=== PATIENT | female | born 1995 | race Caucasian/White ===

== ENCOUNTER 2020-05-16 18:12 | Emergency (ER) | payer OTHER, MEDICAID, SELFPAY ==
--- NOTE | ~2020-05-16 | XR_ITS ---
XR ankle LT min 3V DATE: 05/16/2020 18:29 INDICATION: Fell in a hole yesterday. Lateral pain. TECHNIQUE: 4 views COMPARISON: None FINDINGS: No fracture or dislocation of the ankle or disruption of the ankle mortise. No periosteal r eaction or bone destruction. IMPRESSION: Negative Reviewed, dictated and finalized at location A. IMPRESSION: Negative
[2020-05-16 18:23] VITALS: BP 142/85; PULSE 96; RESP 20; TEMP 36.6; O2SAT 99
--- NOTE | 2020-05-16 18:23 | ED.LOWEXIN ---
HPI - Extremity Injury (Lower) General Chief Complaint: Extremity Injury, Lower Stated Complaint: L/ankle pain Time Seen by Provider: 05/16/20 18:23 Source: patient and RN notes reviewed History of Present Illness HPI Narrative: Patient is a 24-year-old female who presents the urgent care with complaints of left ankle pain after twisting it in a hole in her yard. Patient states the incident occurred last night and she has been using ibuprofen, ice and an Rudy wrap for comfort and support. Denies any other acute complaints or injuries. No acute distress noted. Patient aware of the plan of care. Some parts of this dictation were generated by voice recognition software and may contain typographical and/or grammatical inaccuracies. Related Data Home Medications Medication Instructions Recorded Confirmed No Home Medications 05/16/20 05/16/20 Allergies Allergy/AdvReac Type Severity Reaction Status Date / Time latex Allergy Unknown RASH Verified 08/14/19 18:16 Review of Systems Review of Systems: Narrative: CONSTITUTIONAL: Denies fever, chills, or sweats. EYES: Denies visual changes, redness, or discharge. ENT: Denies rhinorrhea, congestion, sore throat, or otalgia. CARDIOVASCULAR: Denies chest pain, palpitations, or edema. RESPIRATORY: Denies cough or dyspnea. GASTROINTESTINAL: Denies abdominal pain, nausea, vomiting, or diarrhea. GENITOURINARY: Denies dysuria or hematuria. SKIN: Denies rash or itching. MUSCULOSKELETAL: Reports of left ankle pain NEUROLOGIC: Denies headache, numbness, or weakness. All other systems reviewed are negative, except as documented in HPI. PMFSH Past Medical History Medical History (Updated 05/16/20 @ 18:36 by ISELA Longo) Depression Seasonal allergies Social History Social History (Updated 07/15/19 @ 20:43 by Maya Ta NP) Smoking status: Never smoker Additional occupation/education comments: Daycare Gender identity (if verbalized by the patient): Female Spiritual care concerns: No Comments At the time of my signature, I reviewed and agree with the nursing past medical, surgical, social, and family history. There is no relevant family history pertinent to the patient complaint. Exam Narrative: Exam Narrative: GENERAL: This is a well-nourished, well-developed patient, in no apparent distress. HEAD: normocephalic, atraumatic. EYES: PERRL. Sclera clear/white. Vision is grossly intact. EARS: External ears normal NOSE: External nose normal with no obvious nasal discharge, nares without redness, no rhinorrhea. THROAT: Mucous membranes moist NECK: Neck supple SKIN: warm, intact with no suspicious lesions or rash, good texture and turgor. NEURO: awake, alert, and oriented to person, place and time. There were no obvious focal neurologic abnormalities. EXTREMITIES: No obvious deformity, edema, erythema or ecchymosis noted to the left lower extremity. Mild tenderness to the medial left malleolus. Positive strong left pedal pulse with capillary refill less than 2 seconds. Range of motion within normal limits. Pain exacerbated with weightbearing activity. Course Vital Signs Vital signs: Vital Signs Temperature 97.8 F 05/16/20 18:23 Pulse Rate 96 05/16/20 18:23 Respiratory Rate 20 05/16/20 18:23 Blood Pressure 142/85 H 05/16/20 18:23 Pulse Oximetry 99 05/16/20 18:23 Temperature 97.8 F 05/16/20 18:23 Pulse Rate 96 05/16/20 18:23 Respiratory Rate 20 05/16/20 18:23 Blood Pressure 142/85 H 05/16/20 18:23 Pulse Oximetry 99 05/16/20 18:23 Reviewed-patient is informed that they may have pre-hypertension or hypertension based on a blood pressure reading in the department. I recommend the patient call the primary care provider listed on their discharge instructions or a physician of their choice this week to arrange follow-up for further evaluation of possible pre-hypertension or hypertension. MDM - Extremity Injury (Lower) MDM
== END 2020-05-16 18:37 | disposition home or self-care (01) ==
PROVIDERS: Emergency Provider Nurse Practitioner Family
DX: S93.402A Sprain of unspecified ligament of left ankle, initial encounter (principal); S96.912A Strain of unspecified muscle and tendon at ankle and foot level, left foot, initial encounter; X50.9XXA Other and unspecified overexertion or strenuous movements or postures, initial encounter; F32.9 Major depressive disorder, single episode, unspecified
CPT/HCPCS: 73610; 99213; G0463

== ENCOUNTER 2022-10-06 09:06 | Emergency (ER) | payer OTHER, SELFPAY ==
[2022-10-06 09:22] VITALS: BP 122/80; PULSE 94; RESP 16; TEMP 36.2; O2SAT 100
--- NOTE | 2022-10-06 09:34 | ED.DENTAL ---
HPI - Dental/Oral General Chief complaint: Dental/Oral Stated complaint: toothache,swelling rt side of face Time Seen by Provider: 10/06/22 09:36 Source: patient Mode of arrival: ambulatory History of Present Illness HPI Narrative: 27-year-old female presented for complaint of right lower dental swelling since last night. She endorses she has a chipped tooth that this site for about 18 months. States she was evaluated by dentist at the time the tooth broke but could not afford to have it fixed then. She has had no complications up until now. She states she has been using Orajel and its mouthwash. She states the pain is minimal. She denies neck pain or swelling, difficulty swallowing, shortness of breath, nausea, vomiting, fevers or chills. [facility] MD Complaint: tooth pain Related Data Allergies Allergy/AdvReac Type Severity Reaction Status Date / Time latex Allergy Unknown RASH Verified 10/06/22 09:38 Review of Systems Review of Systems: CONSTITUTIONAL: Denies body aches, fever, chills ENT: Denies rhinorrhea, congestion, sore throat, or otalgia. Reports dental pain CARDIOVASCULAR: Denies chest pain, palpitations RESPIRATORY: Denies cough or dyspnea. SKIN: Denies rash, itching, or wounds. MUSCULOSKELETAL: Denies myalgia. NEUROLOGIC: Denies headache, numbness, tingling, or weakness. [facility] Past Medical History Medical History Depression Seasonal allergies Social History Social History Smoking status: Never smoker Living arrangements: with family Occupation/Education: occupation Additional occupation/education comments: Daycare Gender identity (if verbalized by the patient): Female Spiritual care concerns: No Comments At time of signature, I have reviewed and agree with nursing past medical, surgical, social and family history unless otherwise noted. Please see nursing chart for further information. There is no relevant family history pertinent to the presenting complaint Exam Narrative: GENERAL: no acute distress. HEAD: Normocephalic, atraumatic. EYES: EOMI. No redness or drainage. Conjunctivae normal. ENT: Dental pain location of #30, multiple dental caries and broken tooth at this site, mild gum swelling without significant erythema or drainage; tender gums; External swelling to site noted, no bruising or erythema; Mucous membranes pink and moist. TMs normal bilaterally. Throat normal. Uvula midline. NECK: Normal AROM. No induration. No lymphadenopathy. CHEST: Clear to auscultation. HEART: Regular rate and rhythm. No murmur appreciated. SKIN: Warm, dry, no rash. Normal skin turgor. NEURO: No focal deficits. Alert and oriented x3. Course Course Emergency Course: Patient is aware of diagnosis, understands and agrees to treatment plan. Anticipatory guidance given. Patient agrees to follow-up as directed and is aware of reasons to seek care at the emergency department. Portions of this record may have been created with voice recognition software Level of Care: Express Care Visit Vital Signs Vital signs: Vital Signs Temperature 97.2 F L 10/06/22 09:22 Pulse Rate 94 10/06/22 09:22 Respiratory Rate 16 10/06/22 09:22 Blood Pressure 122/80 10/06/22 09:22 Pulse Oximetry 100 10/06/22 09:22 Oxygen Delivery Room Air 10/06/22 09:22 Temperature 97.2 F L 10/06/22 09:22 Pulse Rate 94 10/06/22 09:22 Respiratory Rate 16 10/06/22 09:22 Blood Pressure 122/80 10/06/22 09:22 Pulse Oximetry 100 10/06/22 09:22 Oxygen Delivery Room Air 10/06/22 09:22 MDM - Dental/Oral MDM Narrative Medical decision making narrative: Patients pain and complaint coupled with physical findings are consistent with dental abscess There are no focal signs of space occupying lesions that are compromising to the airway; No uvu
== END 2022-10-06 09:56 | disposition home or self-care (01) ==
PROVIDERS: Emergency Provider Nurse Practitioner Family
DX: K04.7 Periapical abscess without sinus (principal)
CPT/HCPCS: 99213; G0463

== ENCOUNTER 2022-10-21 19:13 | Emergency (ER) | payer OTHER, SELFPAY ==
--- NOTE | 2022-10-21 19:15 | ED.GENADULT ---
HPI - General Adult General Chief complaint: Upper Respiratory Infection Stated complaint: Sore Throat Time Seen by Provider: 10/21/22 19:15 Source: patient Mode of arrival: ambulatory Limitations: no limitations History of Present Illness HPI narrative: 27-year-old female patient presents to the [facility] with complaints of a sore throat that started yesterday. Patient states she thinks you ran a small fever yesterday as well and noticed that she had a pus pocket back of her throat. Denies any ear pain. Denies any nausea, vomiting or diarrhea. Denies any body aches or chills. Related Data Home Medications Medication Instructions Recorded Confirmed No Home Medications 10/21/22 10/21/22 Allergies Allergy/AdvReac Type Severity Reaction Status Date / Time latex Allergy Unknown RASH Verified 10/21/22 19:20 Review of Systems Review of Systems: CONSTITUTIONAL: positive fever, chills, or sweats. EYES: Denies visual changes, redness, or discharge. ENT: Denies rhinorrhea, congestion,positive sore throat, or otalgia. CARDIOVASCULAR: Denies chest pain, palpitations, or edema. RESPIRATORY: Denies cough or dyspnea. GASTROINTESTINAL: Denies abdominal pain, nausea, vomiting, or diarrhea. GENITOURINARY: Denies dysuria or hematuria. SKIN: Denies rash or itching. MUSCULOSKELETAL: Denies back pain, joint pain, or myalgia. NEUROLOGIC: Denies headache, numbness, or weakness. PSYCHIATRIC: Denies anxiety or depression. PMFSH Past Medical History Medical History Depression Seasonal allergies Social History Social History Smoking status: Never smoker Living arrangements: with family Occupation/Education: occupation Additional occupation/education comments: Daycare Gender identity (if verbalized by the patient): Female Spiritual care concerns: No Comments At the time of my signature I agree with nursing past medical history, surgical, social, and family history. There is no relevant family history pertinent to the presenting complaint. Exam Narrative: GENERAL: Well-appearing, well-nourished, and in no acute distress. HEAD: Normocephalic, atraumatic. EYES: PERRLA and EOMI. ENT: Nares clear, no rhinorrhea or epistaxis. Mucous membranes moist. posterior pharynx with 1+ tonsil enlargement does seem to be some white exudate noted to the right tonsil. No erythema noted. But lateral TMs are clear no erythema or foreign bodies the canal. NECK: Supple. No lymphadenopathy CHEST: Clear to auscultation. No respiratory distress. HEART: Regular rate and rhythm. No murmur heard. Normal peripheral pulses. ABDOMEN: Soft, nontender, nondistended, normal active bowel sounds. EXTREMITIES: Normal range of motion. No edema. SKIN: Warm, dry, no rash. NEURO: No focal deficits. Alert and oriented x3. Course Course Level of Care: Express Care Visit Vital Signs Vital signs: Vital Signs Temperature 36.7 C 10/21/22 19:21 Respiratory Rate 18 10/21/22 19:21 Blood Pressure 116/74 10/21/22 19:21 Pulse Oximetry 98 10/21/22 19:21 Oxygen Delivery Room Air 10/21/22 19:21 Temperature 36.7 C 10/21/22 19:21 Respiratory Rate 18 10/21/22 19:21 Blood Pressure 116/74 10/21/22 19:21 Pulse Oximetry 98 10/21/22 19:21 Oxygen Delivery Room Air 10/21/22 19:21 Vital signs reviewed Medical Decision Making MDM Narrative Medical decision making narrative: discussed with patient that her strep test today is negative. We will send to the lab for culture. If the culture comes back positive we will call her in antibiotics at that time. Encouraged patient to continue treating her symptoms with [id number] Tylenol, Motrin, warm saltwater gargles, hot tea and honey Differential Diagnosis Differential Diagnosis: differential diagnosis: Viral pharyngitis, pharyngitis, group A strep, infectious m
[2022-10-21 19:21] VITALS: BP 116/74; RESP 18; TEMP 36.7; O2SAT 98
== END 2022-10-21 19:50 | disposition home or self-care (01) ==
PROVIDERS: Emergency Provider Nurse Practitioner Family
DX: J02.9 Acute pharyngitis, unspecified (principal)
CPT/HCPCS: 87081; 87880; 99213; G0463

== ENCOUNTER 2024-04-03 10:25 | Emergency (ER) | payer BC, SELFPAY ==
[2024-04-03 10:36] VITALS: BP 138/73; PULSE 83; RESP 16; TEMP 37.3; O2SAT 99
--- NOTE | 2024-04-03 11:25 | ED.URI ---
HPI - URI/Sore Throat General Chief Complaint: Dental/Oral Stated Complaint: sinus pressure,left ear pain,tooth pain left side Time Seen by Provider: 04/03/24 11:25 Source: patient, RN notes reviewed and old records reviewed Mode of arrival: ambulatory Limitations: no limitations History of Present Illness HPI Narrative: Patient presents with complaints of left-sided ear pain, broken tooth to same side, and sinus congestion. She reports all symptoms began 3 days ago. She has been taking ibuprofen with moderate relief. She denies any fever, chills, sweats. Has no associated facial swelling Related Data Home Medications Medication Instructions Recorded Confirmed cetirizine 10 mg tablet (Zyrtec) 10 mg PO DAILY 04/03/24 04/03/24 Allergies Allergy/AdvReac Type Severity Reaction Status Date / Time latex Allergy Intermediate RASH Verified 04/03/24 11:31 Review of Systems Review of Systems: All systems reviewed & are unremarkable except as noted in HPI and below Constitutional: Constitutional: Reports no additional constitutional complaints ENT: Reports system reviewed and no additional complaints, except as documented, Reports as per HPI, Reports otalgia, Reports facial pain and Reports mouth pain Cardiovascular: Cardiovascular: Reports no additional cardiovascular complaints Respiratory: Respiratory: Reports no additional respiratory complaints Gastrointestinal: Gastrointestinal: Reports no additional gastrointestinal complaints PMFSH Past Medical History Medical History Depression Seasonal allergies Social History Social History Smoking status: Never smoker Living arrangements: with family Occupation/Education: occupation Additional occupation/education comments: Daycare Gender identity (if verbalized by the patient): Female Spiritual care concerns: No Exam Const: General: cooperative, no acute distress, alert and awake Orientation/consciousness: oriented to person, oriented to place and oriented to time HENMT: Head: normal to inspection Ears: TM's normal bilaterally Mouth: Yes moist mucous membranes Teeth and gingiva: abnormal tooth and associated gingiva (Right lower molar cracked in half, associated gingival abscess) Throat: posterior oropharynx normal Resp: Effort & Inspection: normal respiratory effort and able to speak in complete sentences Auscultation: clear to auscultation bilaterally, no crackles, no rales, no rhonchi and no wheezes Cardio: Palpation: normal PMI Rate: regular rate Rhythm: regular rhythm Heart sounds: S1 normal heart sound present and S2 normal heart sound present Neuro: General: oriented to person, oriented to place and oriented to time Cranial nerves: Yes CN's II-XII intact bilaterally Psych: Appearance: grossly normal Thought process: Normal thought process present Insight: Good insight present (Psych) Judgement: Good judgement present (Psych) Course Course Level of Care: Express Care Visit Vital Signs Vital signs: Vital Signs Temperature 99.1 F 04/03/24 10:36 Pulse Rate 83 04/03/24 10:36 Respiratory Rate 16 04/03/24 10:36 Blood Pressure 138/73 04/03/24 10:36 Pulse Oximetry 99 04/03/24 10:36 Oxygen Delivery Room Air 04/03/24 10:36 Temperature 99.1 F 04/03/24 10:36 Pulse Rate 83 04/03/24 10:36 Respiratory Rate 16 04/03/24 10:36 Blood Pressure 138/73 04/03/24 10:36 Pulse Oximetry 99 04/03/24 10:36 Oxygen Delivery Room Air 04/03/24 10:36 MDM - URI/Sore Throat MDM Narrative Medical decision making narrative: Injured right lower molar, associated abscess. No facial swelling, no immediate airway concerns. Able to manage her own secretions. Patient advised follow-up with dentist without fail, emergency department immediately for new or worse symptoms. Follow up with primary care provider.
== END 2024-04-03 11:36 | disposition home or self-care (01) ==
PROVIDERS: Emergency Provider Nurse Practitioner Family
DX: K04.7 Periapical abscess without sinus (principal)
CPT/HCPCS: 99213; G0463

== ENCOUNTER 2024-09-09 20:57 | Emergency (ER) | payer OTHER, SELFPAY ==
[2024-09-09 20:59] VITALS: BP 129/83; PULSE 100; RESP 20; TEMP 36.4; O2SAT 100
--- NOTE | 2024-09-09 21:13 | ECG_ITS ---
Test Date: 2024-09-09 21:08:12 Measurements Intervals [place] Rate: 89 P: 54 [place]: 143 QRS: 34 QRSD: 95 T: 36 QT: 354 QTc: 431 Interpretive Statements SINUS RHYTHM NORMAL ECG No previous ECG available for comparison Electronically Signed On 09-10-2024 13:39:29 SOFTWARE APPLICATIONS DEVELOPER by Fran Barahona D.O.
--- OUTSIDE RECORDS SUMMARY | 2024-09-09 21:20 | XMS_ITS | Clinical Summary ---
Author Organization [facility] Address [address] [place] [id number] Care Team Providers Care Sagger Filler Name Role Phone Savi Ash MD Unavailable [phone] Adamaris Pierson Primary Care Provider [phone] Allergies Active Allergy Reactions Criticality Noted Date Comments Latex Rash Medium 11/26/2012 Medications cetirizine (ZyrTEC) 10 mg tablet Take 1 tablet (10 mg total) by mouth daily Active celecoxib (CeleBREX) 200 mg capsuleIndicati ons:Chronic pain of left knee Take 1 capsule (200 mg total) by mouth daily for 14 days 14 capsule 05/07/2024 Active Active Problems Problem Noted Date Diagnosed Date Metabolic and nutritional disorder 03/03/2024 Class 1 obesity due to exces s calories without serious comorbidity with body mass index (BMI) of 34.0 to 34.9 in adult 08/25/2022 Assessment & Plan (08/25/2022 7:43 AM CONSTRUCTION RECRUITER): Reviewed BMI Focus on healthy diet options Work on healthy changes Routine adult health maintenance 06/20/2022 Overview (09/04/2023): Health Maintenance: -PCV20: N/A -Tdap vaccine: 2018 -Influenza vaccine: due -Shingles vaccine: N/A -Colonoscopy: N/A -Last WWE: 08/13/23 -Last Mammogram: N/A -Last DEXA: N/A -Last eye exam: N/A -Last MHA: N/A Assessment & Plan (08/25/2022 7:43 AM CONSTRUCTION RECRUITER): Health Maintenance: -PCV20: N/A -Tdap vaccine: 2018 -Influenza vaccine: due -Shingles vaccine: N/A -Colonoscopy: N/A -Last WWE: due -Last Mammogram: N/A -Last DEXA: N/A -Last eye exam: N/A -Last MHA: N/A Patient due for flu shot, she can get this at her pharmacy. She has a sheet metal fabricator she is planning to see for her Pap smear. She declines labs at this time. Work on healthy diet and exercise habits. See me annually for routine physicals. Resolved Problems Problem Noted Date Diagnosed Date Resolved Date Encounter for weight management 03/03/2024 04/08/2024 Acute pain of left knee 11/08/202310/2023 Assessment & Plan (11/08/2023 3:18 PM CDT): Patient unfortunately is experiencing left knee pain following a fall a few days ago. X-ray imaging taken today in clinic is negative for acute osseous abnormality and fracture. Patient is tender to palpation over the medial portion of her knee around the pes anserine, and has weakness with flexion and extension of the leg. Differential may include pes anserine bursitis versus medial meniscal tear versus strain or sprain. At this time, we will move forward with physical therapy to strengthen the quadriceps muscles and she will slowly advance activity as tolerated. She will continue to ice and elevate it as needed for pain and swelling. She will follow up with me in 2 months for repeat evaluation, or sooner if needed. She expressed understanding and agreement with the plan. Pain in joint involving left ankle and foot 11/08/2023 04/08/2024 Assessment & Plan (11/08/2023 3:17 PM CDT): Patient unfortunately has continued to have pain in the left ankle and foot following a fall a few days ago. X-rays taken today in clinic are negative for any acute fracture or other osseous abnormality. She is tender over her deltoid ligament. I feel the patient has experienced a sprain of the deltoid ligament. I discussed treatment options today with the patient, including bracing and physical therapy. Patient states that she does have a brace at home that she can put on. She will start in physical therapy for strengthening and range of motion of the left ankle. She will follow up in 2 months for repeat evaluation. She expressed understanding and agreement with the plan. Encounters Date Type Department Care Team Description 07/28/2024 1:30 PM CONSTRUCTION RECRUITER Office Visit [facility] Primary Care at [address] [phone] Clark Bonilla DO Hoffa'lc fat pad disease (HCC) (Primary Dx) 07/21/2024 10:45 AM CONSTRUCTION RECRUITER Office Visit [facility] Sports Medicine and Primary Care at [address] [phone] Clark Bonilla DO Hoffa'lc fat pad disease (HCC) (Primary Dx) 06/25/2024 1:00 PM CONSTRUCTION RECRUITER Office Visit [facility] Medical [facility] Sports Medicine and Primary Care at [address] [phone] Clark Bonilla DO Hoffa'lc fat pad disease (HCC) (Primary Dx); Acute pain of left knee 06/23/2024 Telephone [facility] Medicine and Primary Care at [address] [phone] Priyanka Shaw MA Test Results 06/20/2024 12:24 PM CONSTRUCTION RECRUITER - 06/20/2024 11:59 PM CONSTRUCTION RECRUITER Hospital Encounter [facility] [address] [place] [address] Acute internal derangement of left knee Discharge Disposition: Discharge to home or self care 06/19/2024 Orders Only [facility] Sports Medicine and Primary Care at [address] [phone] Clark Bonilla DO Acute internal derangement of left knee (Primary Dx) 06/11/2024 8:15 AM CONSTRUCTION RECRUITER Office Visit [facility] Sports Medicine and Primary Care at [address] [place] [address] Clark Bonilla DO Acute internal derangement of left knee (Primary Dx); Pain of left calf from Last 3 Months Immunizations Name Administration Dates Next Due DTP / HiB 03/10/1996,01/08/1996,1995 DTaP 02/12/2001 DTaP / IPV 02/12/2001,01/28/1997,01/08/1996 ,1995 DTaP 5 Pertussis 02/12/2001,01/28/1997 DTaP, Unspecified 02/12/2001,01/28/1997 HPV, Quadrivalent 05/05/2009,08/14/2008,10/14/19 08 HPV, Unspecified 05/05/2009,08/14/2008, 8 Hep A, Adult 03/14/2010,05/05/2009 Hep A, Unspecified 03/14/2010,05/05/2009 Hep B Vaccine 03/10/1996,1995,1995 IPV 02/12/2001,01/28/1997,01/08/1996 ,1995 Influenza, Unspecified 07/06/2023(Deferr ed: Patient Refused),05/06/2022(Deferred: Patient Refused),05/06/2021(Deferred: Patient Refused) MMR 02/12/2001,01/28/1997 MMRV 02/12/2001,01/28/1997 Meningococcal MCV4, Unspecified 01/02/2013,10/13 Meningococcal MCV4P (Menactra) 01/02/2013,2007 Tdap 05/06/2018,10/14/2007 Varicella 10/14/2007,01/28/1997 Family History Medical History Relation Name Comments Hyperlipidemia Father Cancer Father's Sister Themla COPD Maternal Grandmother Sarah Clotting disorder Maternal Grandmother Sarah Heart attack Maternal Grandmother Sarah Hypertension Maternal Grandmother Sarah Arthritis Mother Xochilt Heart disease Mother Xochilt Cancer Paternal Grandfather Daniel Cancer Paternal Grandmother Marija Stroke Paternal Grandmother Marija Relation Name Status Comments Father Father's Sister Themla Maternal Grandmother Sarah Mother Xochilt Paternal Grandfather Daniel Paternal Grandmother Marija Social History Tobacco Use Types Packs/Day Years Used Date Smoking Tobacco: Never Smokeless Tobacco: Never Tobacco Cessation:Counseling Given: Not Answered AUDIT-C Answer Date Recorded Q1: How often do you have a drink containing alc ohol? 2-4 times a month 08/25/2022 Q2: How many drinks containi ng alcohol do you have on a typical day when you are drinking? 1 or 2 08/25/2022 Q3: How often do you have si x or more drinks on one occasion? Less than monthly 08/25/2022 PHQ-2 Answer Date Recorded PHQ-2 Total Score (If total score is 3 or more points, staff should administer the PHQ-9) 0 04/08/2024 Personal Safety Answer Date Recorded Have you ever been in or are you currently in a harmful physical or emotional relationship or is someone making you feel afraid or unsafe? Denies 04/28/2024 Comments No Sex and Gender Information Value Date Recorded Sex Assigned at Not on file Legal Sex Female 11:36 PM CONSTRUCTION RECRUITER Gender Identity Not on file Sexual Orientation Not on file Occupation Industry Job Start Date Job End Date [employer] Not on file Not on file Not on file Obstetrics History Para Term AB IAB SAB Ectopic Multiple Livin g Live Births 0 0 0 0 0 0 0 0 0 0 0 Last Filed Vital Signs Vital Sign Reading Time Taken Comments Blood Pressure 126/82 07/28/2024 1:27 PM CONSTRUCTION RECRUITER Pulse 78 07/28/2024 1:27 PM CONSTRUCTION RECRUITER Temperature 36.6 ??C (97.9 ??F) 04/28/2024 7:40 PM CD T Respiratory Rate 20 07/28/2024 1:27 PM CONSTRUCTION RECRUITER Oxygen Saturation 100% 04/28/2024 10:53 PM CDT Inhaled Oxygen Concentration - - Weight 93.6 kg (206 lb 6.4 oz) 07/28/2024 1:27 P M CONSTRUCTION RECRUITER Height 165.1 cm (5' 5 ) 07/28/2024 1:27 PM CONSTRUCTION RECRUITER Body Mass Index 34.35 07/28/2024 1:27 PM CONSTRUCTION RECRUITER Plan of Treatment Health Maintenance Due Date Last Done Comments Hepatitis C Screening 1995 Influenza Vaccine (#1) 2024 Cervical Cancer Screening 08/13/2024 08/13/2023 Regular Well Visit/Exam 18-64 08/13/2024 08/13/2023, 08/25/2022 Depression Screening 04/08/2025 04/08/2024, 08/25/2022, 08/25/2022 DTaP/Tdap/Td Vaccine (8 - Td or Tdap) 05/06/2028 05/06/2018, 10/14/2007, 02/12/2001, Additional history exists Varicella Vaccines Completed 10/14/2007, 0 02/12/2001, 01/28/1997, Additional history exists HPV Vaccines Completed 05/05/2009, 04/08, 08/14/2008, Additional history exists Pneumococcal vaccine <65 Aged Out No longer eligible based on patient's age to complete this topic Procedures Procedure Name Priority Date/Time Associated Diagnosis Comments CHG US GUIDANCE NEEDLE PLACEMENT IMG S&I Routine 07/28/2024 1:30 PM CONSTRUCTION RECRUITER Hoffa's fat pad disease (HCC) DC INJECTION 1 TENDON SHEATH/LIGAMENT APONEUROSIS Routine 07/28/2024 1:30 PM CONSTRUCTION RECRUITER Hoffa's fat pad disease (HCC) MRI KNEE LEFT WO CONTRAST Schedule Routine, Read Routine (OP Routine) 06/20/2024 1:14 PM CONSTRUCTION RECRUITER Acute internal derangement of left knee PAP WITH REFLEX TO HIGH RISK HPV Routine 08/13/2023 10:33 AM CONSTRUCTION RECRUITER Screening for malignant neoplasm of cervix from Last 3 Months or Most Recently Relevant to Health Maintenance Results * DC INJECTION 1 TENDON SHEATH/LIGAMENT APONEUROSIS, CHG US GUIDANCE NEEDLE PLACEMENT IMG S&I (07/28/2024 1:30 PM CONSTRUCTION RECRUITER) Narrative Clark Bonilla, DO - 07/28/2024 1:30 PM CONSTRUCTION RECRUITER Clark Bonilla, DO ? 07/28/2024 ??1:51 PM Iliopsoas tendon injection w/ Ultrasound Guidance Performed by: Clark Bonilla DO Authorized by: Clark Bonilla, DO ?? Iliopsoas Tendon Injection: ??Consent Given by: ??Patient ??Site marked: the procedure site was marked ?Timeout: prior to procedure the correct patient, procedure, and site was verified ?Verbal consent obtained?: Yes ?? Supporting Documentation: ??Indications: ??Pain and therapeutic Procedure Details: ??Site: ??Left Iliopsoas Tendon (Left patellar tendon/hoffas fat pad) ??Prep: patient was prepped and draped in usual sterile fashion ?Patient position: ??Supine ??Needle Size: ??22 G ??Ultrasound guidance: Yes ??Injection with ultrasound guidance. The iliopsoas tendon was identified in the anterior hip using the ultrasound. The area was cleaned and prepped in sterile fashion. ??Sterile ultrasound probe cover and sterile ultrasound gel were used. ??Ultrasound approach: The needle was advanced under ultrasound guidance using an ??In-plane approach into the iliopsoas tendon. 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 passively. ??The anterior knee was sterilized using ChloraPrep. ??Sterile technique was used on the L4-12 T transducer. ??The patella was found on ultrasound in both long and short axis along with the patellar tendon. ??There was noted to be a slight amount of fluid accumulation deep to the patella but superficial to the Hoffa's fat pad. ??This was the area noted to be of irritation. ??In short axis the patellar tendon a 22 gauge 1.5 in needle was inserted in the lateral aspect of the knee and advanced, implant pain to the area deep to the patellar tendon but superficial to Hoffa's fat pad. ??Once noted within this area the probe was flipped to the short axis in an out of plane approach and the needle tip was identified. ??Once noted within the correct area a substrate of 3 cc of 2% lidocaine without epinephrine +3 cc of sterile saline +1 cc of 80 mg of Depo-Medrol was injected. ??Flow of fluid was noted up and down the base of the patellar tendon sheath and above Hoffa's fat pad dissecting Hoffa's fat pad deep to the tendon and removing all adhesions. Impression: 1: Successful injection of substrate in a hydrodissection of the Hoffa's fat pad deep to the patellar tendon ??Medications: ??80 mg methylPREDNISolone acetate 40 mg/mL us Clark Bonilla DO IN CLINIC/BEDSIDE [facility] Final Result * MRI Knee Left WO Contrast (06/20/2024 1:14 PM CONSTRUCTION RECRUITER) Anatomical Region Laterality Modality Lower Extremities Left Magnetic Reson ance 06/22/2024 3:59 PM CONSTRUCTION RECRUITER Narrative 06/22/2024 4:04 PM CONSTRUCTION RECRUITER EXAM DESCRIPTION: MRI KNEE LEFT WO CONTRAST REASON FOR STUDY: left knee pain ?? Patient fell at work while running and landed on her left knee, swelling, pain ,happened in November 2023 ?? TECHNIQUE: Multiplanar, multisequence MRI of the ??left ??knee was performed ?? without contrast. COMPARISON: 11/08/2023 FINDINGS: In the medial compartment, the meniscus is intact. There is no focal chondrosis or subchondral edema. In the lateral compartment, the meniscus is intact. There is no focal chondrosis or subchondral edema. In the patellofemoral compartment, there is no focal chondrosis or subchondral edema. The cruciate and collateral ligaments are intact. The extensor mechanism is normal. The popliteus tendon is intact. Small effusion is present. ??There is edema involving the superolateral aspect of Hoffa's fat pad. ??There are no loose bodies. ?? IMPRESSION: Intact left knee menisci, cruciate and collateral ligaments. Small left knee effusion. Edema involving the superolateral aspect of Hoffa's fat pad, which can be associated with lateral femoral condyle patellar tendon friction syndrome. THIS IS AN ELECTRONICALLY VERIFIED FINAL REPORT 06/22/2024 4:04 PM - Electronically signed by ??Clark Baker M.D. MF: MAUREEN D: ??06/22/2024 4:04 PM T: ??06/22/2024 4:04 PM Report ID: [id number] Reading Location: ??[id number] Procedure Note Clark Baker MD - 06/22/2024 EXAM DESCRIPTION: MRI KNEE LEFT WO CONTRAST REASON FOR STUDY: left knee pain Patient fell at work while running and landed on her left knee, swelling,pain ,happened in November 2023 TECHNIQUE: Multiplanar, multisequence MRI of the left knee was performed without contrast. COMPARISON: 11/08/2023 FINDINGS: In the medial compartment, the meniscus is intact. There is no focal chondrosis or subchondral edema. In the lateral compartment, the meniscus is intact. There is no focal chondrosis or subchondral edema. In the patellofemoral compartment, there is no focal chondrosis orsubchondral edema. The cruciate and collateral ligaments are intact. The extensor mechanismis normal. The popliteus tendon is intact. Small effusion is present. Thereis edema involving the superolateral aspect of Hoffa's fat pad. There are no loose bodies. IMPRESSION: Intact left knee menisci, cruciate and collateral ligaments. Small left knee effusion. Edema involving the superolateral aspect of Hoffa's fat pad, which can be associated with lateral femoral condyle patellar tendon frictionsyndrome. THIS IS AN ELECTRONICALLY VERIFIED FINAL REPORT 06/22/2024 4:04 PM - Electronically signed by Clark Baker M.D. MF: MAUREEN Report ID: [id number] Reading Location: [id number] Clark Bonilla DO IMG MRI PROCEDURES Fin al Result * Pap with reflex to High Risk HPV and Genotyping (Cytology Component) (08/13/2023 10:33 AM CONSTRUCTION RECRUITER) Thin prep (Pap test) 08/13/2023 10:33 AM CONSTRUCTION RECRUITER 08/13/2023 10:33 AM CONSTRUCTION RECRUITER Narrative PATHOLOGY CH - 08/15/2023 1:20 PM CONSTRUCTION RECRUITER [facility] Department of Pathology [address] [place] [address] Final Report Note to Patients: This report may contain a detailed description of human tissue sent by a health care provider to the laboratory for pathologic evaluation. The content of this report is essential for diagnosis and may provide important critical findings. This information may be unfamiliar to patients to review without a medical professional present. It is advised that the patient review this report in the presence of a health care provider who can answer questions and explain the details. Patient Name: ??WILLIAM POOLE Address: ??[address] , ?? [place], [place] ??[address] Gender: ??F : ??1995 (Age: 27) Service: ?? Location: ?? Hospital #: ??[id number] Patient Type: ?? SPECIMEN Taken: ??08/13/2023 Received: ??08/13/2023 Accessioned:: ??08/14/2023 Reported: ??08/15/2023 Physician(s): Akosua Espinosa D.O. Diagnosis: SOURCE OF SPECIMEN ? Imaged Thinprep Pap Test w/ Reflex HPV - Master Police Detective Cytologic Material: STATEMENT OF ADEQUACY ?- Satisfactory for evaluation; endocervical/transformation zone component present ? GENERAL CATEGORIZATION: ?- Negative for intraepithelial lesion or malignancy ? LAURENT Floyd(ASCP) Report Electronically Reviewed and Signed Out By ??LAURENT Floyd(ASCP) ??08/15/2023 13:20:55Specimen(s) Received: A: Imaged Thinprep Pap Test w/ Reflex HPV - Master Police Detective Cytologic Material Clinical History: Last Menstrual Period: 07/21/2023 The Pap test is a screening test used to aid in the detection of cervical cancer and its precursors. ??It should not be the sole means by which malignant and premalignant lesions are diagnosed. ??Both false negative and false positive results may occur. ?? It also has poor sensitivity for the detection of endometrial lesions and should not be used to evaluate suspected endometrial abnormalities. ??For these reasons it is most important to obtain Pap tests at regular intervals. The performance characteristics of some immunohistochemical stains, fluorescence in-situ hybridization tests and immunophenotyping by flow cytometry cited in this report (if any) were determined by the Surgical Pathology Department at [facility] as part of an ongoing air quality specialist program and in compliance with federally mandated regulations drawn from the Clinical Laboratory Improvement Act of 1988 (CLIA '88). ??Some of these tests rely on the use of analyte specific reagents and are subject to specific labeling requirements by the US Food and Drug Administration. ??Such diagnostic tests may only be performed in a facility that is certified by the Department of Health and Human Services as a high complexity laboratory under CLIA '88. The FDA has determined that such clearance or approval is not necessary. ??This test is used for clinical purposes. ??It should not be regarded as investigational or for research. ??Nevertheless, federal rules concerning the medical use of analyte specific reagents require that the following disclaimer be attached to the report: This test was developed and its performance characteristics determined by the Surgical Pathology Department [facility]. ??It has not been cleared or approved by the U. S. Food and Drug Administration. Cassandra De Jesus DO LAB CYTOLOGY ORDERABLES Final Result Performing Organization Address City/State/[facility] Co de Phone Number PATHOLOGY [address] [place] [address] from Last 3 Months or Most Recently Relevant to Health Maintenance [place] Care Teams Sagger Filler Relationship Specialty Start Date End Date Adamaris Pierson PA [address] [facility] [place] [address] PCP - General Family Medicine 06/22/22 Savi Ash MD [address] [place] [address] 10/10/19
--- OUTSIDE RECORDS SUMMARY | 2024-09-09 21:21 | XMS_ITS | Referral Summary ---
Author Organization [facility] Address [facility] [place] [address] Care Team Providers Care Lining Cleaner Name Role Phone Savi Ash MD Unavailable [phone] Adamaris Pierson Primary Care Provider [phone] Encounters Date Type Department Care Team Description 07/28/2024 1:30 PM ADDRESSER Office Visit [facility] Sports Medicine and Primary Care at [address] [address] Clark Bonilla DO Hoffa's fat pad disease (HCC) (Primary Dx) 07/21/2024 10:45 AM ADDRESSER Office Visit [facility] Medical [facility] Sports Medicine [facility] Primary Care at [address] [address] Clark Bonilla DO Hoffa's fat pad disease (HCC) (Primary Dx) 06/25/2024 1:00 PM ADDRESSER Office Visit [facility] Medical [facility] Sports Medicine and Primary Care at [address] [address] Clark Bonilla DO Hoffa's fat pad disease (HCC) (Primary Dx); Acute pain of left knee 06/23/2024 Telephone [facility] Medical [facility] Sports Medicine and Primary Care at [address] [address] Priyanka Shaw MA Test Results 06/20/2024 12:24 PM ADDRESSER - 06/20/2024 11:59 PM ADDRESSER Hospital Encounter [facility] [address] [place] [address] Acute internal derangement of left knee Discharge Disposition: Discharge to home or self care 06/19/2024 Orders Only [facility] Medical [facility] Sports Medicine and Primary Care at [address] [place] [address] Clark Bonilla DO Acute internal derangement of left knee (Primary Dx) 06/11/2024 8:15 AM ADDRESSER Office Visit [facility] Medical [facility] Sports Medicine and Primary Care at [address] [place] [address] Clark Bonilla, Acute internal derangement of left knee (Primary Dx); Pain of left calf from Last 3 Months Allergies Active Allergy Reactions Criticality Noted Date [...] 08/25/2022 Assessment & Plan (08/25/2022 7:43 AM ADDRESSER): Reviewed BMI Focus on healthy diet options Work on healthy changes Routine adult health maintenance 06/20/2022 Overview (09/04/2023): Health Maintenance: -PCV20: N/A -Tdap vaccine: 2018 -Influenza vaccine: due -Shingles vaccine: N/A -Colonoscopy: N/A -Last WWE: 08/13/23 -Last Mammogram: N/A -Last DEXA: N/A -Last eye exam: N/A -Last MHA: N/A Assessment & Plan (08/25/2022 7:43 AM ADDRESSER): Health Maintenance: -PCV20: N/A -Tdap vaccine: 2018 -Influenza vaccine: due -Shingles vaccine: N/A -Colonoscopy: N/A -Last WWE: due -Last Mammogram: N/A -Last DEXA: N/A -Last eye exam: N/A -Last MHA: N/A Patient due for flu shot, she can get this at her pharmacy. She has a drier transfer car operator she is planning to see for her [...] expressed understanding and agreement with the plan. Immunizations Name Administration Dates Next Due DTP [...] MCV4P (Menactra) 01/02/2013,2007 Tdap 05/06/2018,10/14/2007 Varicella 10/14/2007,01/28/1997 Social History Tobacco Use Types Packs/Day Years [...] on file Legal Sex Female 11:36 PM ADDRESSER Gender Identity Not on file Sexual Orientation Not on file Occupation Industry Job Start Date Job End Date [employer] Not on file Not on file Not on file Last Filed Vital Signs Vital Sign Reading Time Taken Comments Blood Pressure 126/82 07/28/2024 1:27 PM ADDRESSER Pulse 78 07/28/2024 1:27 PM ADDRESSER Temperature 36.6 ??C (97.9 ??F) 04/28/2024 7:40 PM CD T Respiratory Rate 20 07/28/2024 1:27 PM ADDRESSER Oxygen Saturation 100% 04/28/2024 10:53 PM CDT Inhaled Oxygen Concentration - - Weight 93.6 kg (206 lb 6.4 oz) 07/28/2024 1:27 P M ADDRESSER Height 165.1 cm (5' 5 ) 07/28/2024 1:27 PM ADDRESSER Body Mass Index 34.35 07/28/2024 1:27 PM ADDRESSER Plan of Treatment Not on file Procedures Procedure Name Priority Date/Time Associated Diagnosis Comments G US GUIDANCE NEEDLE PLACEMENT IMG S&I Routine 07/28/2024 1:30 PM ADDRESSER Hoffa's fat pad disease (HCC) [place] INJECTION 1 TENDON SHEATH/LIGAMENT APONEUROSIS Routine 07/28/2024 1:30 PM ADDRESSER Hoffa's fat pad disease (HCC) MRI KNEE LEFT WO CONTRAST Schedule Routine, Read Routine (OP Routine) 06/20/2024 1:14 PM ADDRESSER Acute internal derangement of left knee PAP WITH REFLEX TO HIGH RISK HPV Routine 08/13/2023 10:33 AM ADDRESSER Screening for malignant neoplasm of cervix from Last 3 Months or Most Recently Relevant to Health Maintenance Results * [place] INJECTION 1 TENDON SHEATH/LIGAMENT APONEUROSIS, CHG US GUIDANCE NEEDLE PLACEMENT IMG S&I (07/28/2024 1:30 PM ADDRESSER) Narrative Clark Bonilla DO - 07/28/2024 1:30 PM ADDRESSER Clark Bonilla, DO ? 07/28/2024 ??1:51 PM Iliopsoas tendon injection w/ Ultrasound Guidance Performed by: Clark Bonilla DO Authorized by: Clark Bonilla DO ?? Iliopsoas Tendon Injection: ??Consent Given [...] were used ?Ultrasound Note: ??Patient name: William Poole Performing physician: Clark Bonilla DO, FAOASM, CAM Reason for procedure: ??Hoffa's fat pad syndrome [...] Knee Left WO Contrast (06/20/2024 1:14 PM ADDRESSER) Anatomical Region Laterality Modality Lower Extremities Left Magnetic Reson ance 06/22/2024 3:59 PM ADDRESSER Narrative 06/22/2024 4:04 PM ADDRESSER EXAM DESCRIPTION: MRI KNEE LEFT WO CONTRAST [...] PM T: ??06/22/2024 4:04 PM Report ID: [id number] Reading Location: ??[id number] Procedure Note Clark Baker MD - 06/22/2024 [...] Clark Baker M.D. MF: MAUREEN Report ID: [id number] Reading Location: [id number] Clark Bonilla DO IMG MRI PROCEDURES Fin al Result * Pap with reflex to High Risk HPV and Genotyping (Cytology Component) (08/13/2023 10:33 AM ADDRESSER) Thin prep (Pap test) 08/13/2023 10:33 AM ADDRESSER 08/13/2023 10:33 AM ADDRESSER Narrative PATHOLOGY CH - 08/15/2023 1:20 PM ADDRESSER [facility] Department of Pathology [address] [place] [address] Final Report Note to Patients: This report [...] the details. Patient Name: ??WILLIAM POOLE Address: ??[address] [place] [address], ?? [place], [place] ??[address] Gender: ??F : ??1995 (Age: 27) Service: ?? Location: ?? Hospital #: ??[id number] Patient Type: ?? SPECIMEN Taken: ??08/13/2023 Received: ??08/13/2023 Accessioned:: ??08/14/2023 Reported: ??08/15/2023 Physician(s): Akosua Espinosa D.O. Diagnosis: SOURCE OF SPECIMEN ? Imaged Thinprep Pap Test w/ Reflex HPV - Executive Director Sheltered Workshop Cytologic Material: STATEMENT OF ADEQUACY ?- Satisfactory for evaluation; endocervical/transformation zone component present ? GENERAL CATEGORIZATION: ?- Negative for intraepithelial lesion or malignancy ? LAURENT Floyd(ASCP) Report Electronically Reviewed and Signed Out By ??LAURENT Floyd(ASCP) ??08/15/2023 13:20:55Specimen(s) Received: A: Imaged Thinprep Pap Test w/ Reflex HPV - Executive Director Sheltered Workshop Cytologic Material Clinical History: Last Menstrual Period: [...] determined by the Surgical Pathology Department at [facility] as part of an ongoing quality analyst/technical writer program and in compliance with federally mandated [...] characteristics determined by the Surgical Pathology Department [facility]. ??It has not been cleared or approved by the U. S. Food and Drug Administration. Cassandra De Jesus DO LAB CYTOLOGY ORDERABLES Final Result PATHOLOGY [id number] [facility] [place] [address] from Last 3 Months or Most Recently Relevant to Health Maintenance Insurance [place] [employer] [employer] [place] Care Teams Lining Cleaner Relationship Specialty Start Date End Date Adamaris Pierson PA [address] [place] [address] PCP - General Family Medicine 06/22/22 Savi Ash MD [address] [place] [address] 10/10/19
--- OUTSIDE RECORDS SUMMARY | 2024-09-09 21:21 | XMS_ITS | Clinical Summary ---
Author Organization [facility] Address [address] [place] [id number] Care Team Providers Care Spanisher Name Role Phone Adamaris Pierson PA-C Primary Care Provider Allergies Active Allergy Reactions Criticality Noted Date Comments Latex Unknown 12/23/2014 Medications meloxicam 15 MG tablet Take 15 mg by mouth daily. 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 Immunizations Name Administration Dates Next Due DTaP (Daptacel) 02/12/2001,01/28/1997 Dtap (Generic) 02/12/2001,01/28/1997 Dtp/Hib 03/10/1996,01/08/1996,1995 HPV 05/05/2009,08/14/2008,10/14/2007 HPV4 (Gardasil) 05/05/2009,08/14/2008,10/14/2007 Hepatitis A (Generic) 03/14/2010,05/05/2009 Hepatitis B (Generic: Adult) 03/10/1996,10/07/18 96,1995 MMR 02/12/2001,01/28/1997 MMR (Generic) 02/12/2001,01/28/1997 Meningococcal Vac A,C,Y,W-135 Sc 01/02/2013,10/04 Meningococcal(Mcv 4)Aka Menactra 01/02/2013,10/04 Polio Ipv (Generic) 02/12/2001,01/28/1997,1995,1995 Tdap (Adacel) 05/06/2018 Tdap (Generic) 05/06/2018,10/14/2007 Varicella Vaccine 10/14/2007,01/28/1997 Family History Medical History Relation Comments None Father None Mother Relation Status Comments Father Alive Mother Alive Social History Tobacco Use Types Packs/Day Years Used Date Smoking Tobacco: Never Smokeless Tobacco: Never Alcohol Use Standard Drinks/Week Comments Yes 0 (1 standard drink = 0.6 oz pur e alcohol) AUDIT-C Answer Date Recorded Frequency of Alcohol Consumption 2-4 times a sun07/31/2018 Average Number of Drinks 1 or 2 018 Frequency of Binge Drinking Never 07/07 PHQ-2 Answer Date Recorded PHQ-2 Score - If the patient scores above 3, please move on to questions 3-9 0 06/04/2020 Education Answer Date Recorded What is the highest level of school you have completed or the highest degree you have received? 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 Not on file Not on file Last Filed Vital Signs Vital Sign Reading Time Taken Comments Blood Pressure 139/81 11/15/2023 10:29 PM CDT Pulse 97 11/15/2023 10:29 PM CDT Temperature 36.7 ??C (98 ??F) 11/15/2023 10:29 PM CDT Respiratory Rate 18 11/15/2023 10:29 PM CDT Oxygen Saturation 100% 11/15/2023 10:29 PM CDT Inhaled Oxygen Concentration - - Weight 93.4 kg (206 lb) 11/15/2023 10:29 PM CDT Height 165.1 cm (5' 5 ) 11/15/2023 10:29 PM CDT Body Mass Index 34.28 11/15/2023 10:29 PM CDT Plan of Treatment Health Maintenance Due Date Last Done Comments Hepatitis C 2013 Annual Physical 06/04/2021 06/04/2020 COVID-19 Vaccine ( season) 2024 Influenza Adult (#1) 2024 Cervical Cancer Screening Pap Smear (Age 21 to 29) Every 3 Years 08/13/2026 08/13/2023 Cervical Cancer Screening 08/13/2026 DTaP, Tdap and Td Vaccines (6 - Td or Tdap) 05/06/2028 05/06/2018, 05/06/2018, 10/14/2007, Additional history exists Hepatitis B Vaccines Completed 03/10/1996, 1995, 1995 HPV Vaccines Completed 05/05/2009, 04/08, 08/14/2008, Additional history exists Meningococcal Vaccine Aged Out 01/02/2013, 008 No longer eligible based on patient's age to complete this topic Meningococcal B Vaccine Aged Out No l onger eligible based on patient's age to complete this topic Pneumococcal Vaccine: Pediatrics (0 to 5 Years) and At-Risk Patients (6 to 64 Years) Aged Out No longer eligible based on patient's age to complete this topic RSV Immunizations Under 20 Months Aged Out No longer eligible based on patient's age to complete this topic Insurance [facility] Care Teams Spanisher Relationship Specialty Start Date End Date Adamaris Pierson PA-C [address] [place] [address] PCP - General PHYSICIAN STRAIGHT LINE PRESS SETTER 11/15/23
[2024-09-09 21:40] VITALS: BP 129/83; PULSE 100; RESP 19; RESP 20; O2SAT 100
[2024-09-09 21:50] LABS: Basophils Absolute Auto 0.1 K/mm3 (0.0-0.1); Basophils Percent Auto 0.8 % (0.2-1.2); Eosinophils Absolute Auto 0.1 K/mm3 (0-0.3); Hematocrit 45.6 % (37.0-47.0); Hemoglobin 15.3 g/dL (12.0-15.0); Immature Granulocyte Absolute 0.02 K/mm3 (0.00-0.031); Immature Granulocyte Percent A 0.3 % (0-0.5); Lymphocytes Absolute Auto 2.57 K/mm3 (0.9-3.2); Lymphocytes Percent Auto 32.4 % (18.3-44.2); Mean Corpuscular HGB Conc 33.6 g/dl (32-36); Mean Corpuscular Hemoglobin 29.9 pg (26-34); Mean Corpuscular Volume 89.1 fl (80-100); Mean Platelet Volume 10.2 fl (7.4-10.4); Monocytes Absolute Auto 0.5 K/mm3 (0.1-0.6); Monocytes Percent Auto 5.9 % (2.6-8.5); Neutrophils Absolute Auto 4.7 K/mm3 (1.3-6.7); Neutrophils Percent Auto 59.6 % (45.5-73.1); Platelet Count Result 272 k/mm3 (150-375); Red Blood Count 5.12 M/mm3 (4.2-5.4); Red Cell Distribution Width 12.7 % (11.5-14.5); White Blood Count 7.9 K/mm3 (4.5-10.0)
[2024-09-09 22:02] LABS: Alanine Aminotransferase 23 U/L (6-35); Albumin Level 4.6 g/dL (3.5-5.1); Alkaline Phosphatase 97 U/L (38-126); Anion Gap 14 mmol/L (4-12); Aspartate Amino Transferase 22 U/L (14-36); Bilirubin,Total 0.4 mg/dL (0.2-1.3); Blood Urea Nitrogen 14 mg/dL (7-17); Calcium 9.1 mg/dL (8.4-10.2); Carbon Dioxide 21 mmol/L (22-30); Chloride 106 mmol/L (98-107); Estimated CRCL calculation 101 ml/min; Estimated Glomerular Filt Rate > 60; Glucose 106 mg/dL (65-110); Magnesium 1.8 mg/dL (1.6-2.3); Potassium 3.7 mmol/L (3.4-5.0); Sodium 141 mmol/L (137-145)
[2024-09-09 22:27] VITALS: BP 122/76; PULSE 101; RESP 18; O2SAT 100
--- NOTE | 2024-09-09 23:28 | PC.NURSE ---
Per Yanely with Poison control, patient is approved for discharge at 1230 if she is stable at the time. MICHELE Malone notified.
--- NOTE | 2024-09-09 23:53 | ED_ITS ---
HPI - Overdose General Chief Complaint: Overdose Stated Complaint: ACCIDENTAL OD ON TESSALON PEARLES Time Seen by Provider: 09/09/24 21:13 Source: patient Mode of arrival: EMS Limitations: no limitations History of Present Illness HPI Narrative: Patient is a 29-year-old female who presents the ED via EMS with report of accidental overdose on Tessalon Perles. Patient reports she was diagnosed with an upper respiratory infection yesterday by Urgent Care. Prescribed Tessalon Perles and prednisone. States she got her prescriptions mixed up and accidentally took 3 of the tessalon perles 200mg instead of one pill at 8pm. She became anxious about accidentally taking an additional pill and contacted poison Control. She was referred to ED for further evaluation. Patient states she feels anxious currently, but denies any other complaints. Denies dizziness, lightheadedness, chest pain, palpitations, seizure activity. Patient denies any intent to harm herself. States this was very much accidental. Related Data Home Medications ?Medication ?Instructions ?Recorded ?Confirmed ?Last Taken ?Type cetirizine 10 mg tablet (Zyrtec) 10 mg PO DAILY 04/03/24 04/03/24 Unknown History Allergies Allergy/AdvReac Type Severity Reaction Status Date / Time latex Allergy Intermediate RASH Verified 09/09/24 21:39 Review of Systems 2 Review of Systems: All systems reviewed & are unremarkable except as noted in HPI. All systems reviewed & are unremarkable except as noted in HPI and below PMFSH Past Medical History Medical History Seasonal allergies Depression Social History Social History Smoking status: Never smoker Living arrangements: with family Occupation/Education: occupation Additional occupation/education comments: Daycare Gender identity (if verbalized by the patient): Female Spiritual care concerns: No Exam 2 Narrative: GENERAL: Well appearing, obese with BMI of 33.0, non-toxic, in no acute distress. HEAD: Normocephalic, atraumatic. RESPIRATORY: Airway patent, respirations nonlabored. Clear to auscultation bilaterally, no rales, rhonchi, wheezing. CARDIOVASCULAR: Borderline tachycardic with regular rhythm without murmurs, rubs, or gallops. MUSCULOSKELETAL: Moves all extremities. No gross deformities. SKIN: Warm, dry, normal color. NEURO: A&O X3. Speech clear. Cranial nerves II-XII grossly intact. Steady gait. No ataxic movements. PSYCHIATRIC: Mildly anxious. Normal interaction. Course Vital Signs Vital signs: Vital Signs Temperature 97.6 F 09/09/24 20:59 Pulse Rate 100 09/09/24 20:59 Respiratory Rate 20 09/09/24 20:59 Blood Pressure 129/83 09/09/24 20:59 Pulse Oximetry 100 09/09/24 20:59 Oxygen Delivery Room Air 09/09/24 20:59 Temperature 97.6 F 09/09/24 20:59 Pulse Rate 101 H 09/09/24 22:27 Respiratory Rate 18 09/09/24 22:27 Blood Pressure 122/76 09/09/24 22:27 Pulse Oximetry 100 09/09/24 22:27 Oxygen Delivery Room Air 09/09/24 21:40 MDM - Overdose MDM Narrative Medical decision making narrative: Patient presented to ED with accidental overdose on Tessalon Perles, 3 200 mg pills around 8:00 p.m.. Patient contacted poison Control herself and was referred to the ED for further evaluation. We were advised by poison Control to obtain EKG and blood work, monitor for 4-6 hours for seizure-like activity and/or ventricular arrhythmias. Patient asymptomatic at this time. EKG with sinus rhythm, normal rate, normal QTC. Laboratory studies are fairly unremarkable. Stable electrolytes and magnesium. ED nurse discussed with poison control again, advised patient can be cleared at 12:30 p.m. if she remains asymptomatic/stable. Patient has remained hemodynamically stable. Heart rate down into the 80s. No evidence of arrhythmias on telemetry monitoring while here. She feels completely at her baseline. Has not noticed any symptoms. She feels comfortable with discharge home at this time. Family member present at bedside. Advised to avoid further doses of Tessalon Perles until tomorrow. Given strict return precautions. She agrees with plan. Discharged in stable condition. Vital signs stable at time of D/C. Medical Records Attestation: I reviewed the patient's medical records. Lab Data Attestation: I reviewed the patient's lab results. 09/09/24 21:45 09/09/24 21:45 Labs: Lab Results 09/09/24 Range/Units 21:45 WBC 7.9 (4.5-10.0) K/mm3 RBC 5.12 (4.2-5.4) M/mm3 Hgb 15.3 H (12.0-15.0) g/dL Hct 45.6 (37.0-47.0) % MCV 89.1 (80-100) fl MCH 29.9 (26-34) pg MCHC 33.6 (32-36) g/dl RDW 12.7 (11.5-14.5) % Plt Count 272 (150-375) k/mm3 MPV 10.2 (7.4-10.4) fl Immature Gran % (Auto) 0.3 (0-0.5) % Neut % (Auto) 59.6 (45.5-73.1) % Lymph % (Auto) 32.4 (18.3-44.2) % [place] % (Auto) 5.9 (2.6-8.5) % Eos % (Auto) 1.0 (0-4.4) % Baso % (Auto) 0.8 (0.2-1.2) % Lymph # (Auto) 2.57 (0.9-3.2) K/mm3 [place] # (Auto) 0.5 (0.1-0.6) K/mm3 Eos # (Auto) 0.1 (0-0.3) K/mm3 Baso # (Auto) 0.1 (0.0-0.1) K/mm3 Abs Immat Gran (auto) 0.02 (0.00-0.031) K/mm3 Absolute Neuts (auto) 4.7 (1.3-6.7) K/mm3 Absolute Nucleated RBC 0.000 (0.0-0.012) K/mm3 Nucleated RBC % 0.0 (0.0-0.2) % Sodium 141 (137-145) mmol/L Potassium 3.7 (3.4-5.0) mmol/L Chloride 106 (98-107) mmol/L Carbon Dioxide 21 L (22-30) mmol/L Anion Gap 14 H (4-12) mmol/L BUN 14 (7-17) mg/dL Creatinine 0.79 (0.7-1.0) mg/dL Estim Creat Clear Calc 101 ml/min Estimated GFR > 60 (59 - ) Glucose 106 (65-110) mg/dL Calcium 9.1 (8.4-10.2) mg/dL Magnesium 1.8 (1.6-2.3) mg/dL Total Bilirubin 0.4 (0.2-1.3) mg/dL AST 22 (14-36) U/L ALT 23 (6-35) U/L Alkaline Phosphatase 97 (38-126) U/L Total Protein 8.0 (6.3-8.2) g/dL Albumin 4.6 (3.5-5.1) g/dL ECG Data EKG #1: Attestation: I personally reviewed and interpreted this ECG as follows: ECG completion date: 09/09/24 ECG completion time: 21:08 EKG Interpretation: normal rate (89), sinus rhythm, no ST changes and normal QT Discharge Plan Discharge Clinical Impression: Accidental drug ingestion Qualifiers: Encounter type: initial encounter Qualified Code(s): T50.901A - Poisoning by unspecified drugs, medicaments and biological substances, accidental (unintentional), initial encounter Patient Disposition: Home, Self-Care Condition: Stable Instructions: Antibiotic Form, Adult Overdose (ED) Additional Instructions: Return to the ED if you experience heart palpitations, chest pain, shortness of breath, dizziness, lightheadedness, passing out, seizure-like activity, numbness or weakness of arm or leg, or any other symptoms of concern. Patient Language: Icelandic Prescriptions: No Action cetirizine [Zyrtec] 10 mg Tablet 10 mg PO DAILY amoxicillin 875 mg tablet 875 mg PO Q12H Qty: 20 0RF Follow-up/Referrals: PHYSICIAN,RISK MANAGEMENT CONSULTANT [Primary Care Provider] - Time of Disposition: 00:33
== END 2024-09-10 01:10 | disposition home or self-care (01) ==
PROVIDERS: Emergency Provider Physician Assistant
DX: T48.3X1A Poisoning by antitussives, accidental (unintentional), initial encounter (principal); F32.A Depression, unspecified
CPT/HCPCS: 36415; 80053; 83735; 85025; 93005; 99283